=== PATIENT | male | born 1970 | race Caucasian/White ===

== ENCOUNTER 2019-06-22 08:05 | Inpatient (IN) | payer OTHER ==
[2019-06-22 09:09] VITALS: BMI 32.3
--- NOTE | 2019-06-22 09:37 | HP ---
CIWA Score Nausea/Vomitin Muscle Tremors: 4-Moderate,w/Arms Extend Anxiety: 4-Mod. Anxious/Guarded Agitation: 4-Moderately Restless Paroxysmal Sweats: 3 Orientation: 0-Oriented Tacttile Disturbances: 2-Mild Itch/Numbness/Burn Auditory Disturbances: 0-None Visual Disturbances: 0-None Headache: 3-Moderate CIWA-Ar Total Score: 23 - Admission Criteria OASAS Guidelines: Admission for Medically Managed Detox: Requires at least one of the followin. CIWA greater than 12 2. Seizures within the past 24 hours 3. Delirium tremens within the past 24 hours 4. Hallucinations within the past 24 hours 5. Acute intervention needed for co occurring medical disorder 6. Acute intervention needed for co occurring psychiatric disorder 7. Severe withdrawal that cannot be handled at a lower level of care (continued vomiting, continued diarrhea, abnormal vital signs) requiring intravenous medication and/or fluids 8. Admission ROS S - HPI Allergies/Adverse Reactions: Allergies Allergy/AdvReac Type Severity Reaction Status Date / Time codeine Allergy Rash Verified 06/22/19 08:56 History of Present Illness: pt here requesting detox from etoh reports 1 l vodka and 6 beers/day x 35 years, previous multiple detx @ [facility] , longest sobreity 5 years w/ AA from [id number] . Denies seizures , + blackouts , starts drinking alcohol in the mornings. current ROBSON 0.025 tobacco : 1 ppd PMHX : DM dx 3 years ago on Metformin , latest taken 4 days ago . PSHX : denies PSych : denies Exam Limitations: Clinical Condition, Intoxication - Ebola screening Have you traveled outside of the country in the last 21 days: No (N) Have you had contact with anyone from an Ebola affected area: No Do you have a fever: No - Review of Systems Constitutional: See HPI EENT: reports: No Symptoms Reported Respiratory: reports: No Symptoms reported Cardiac: reports: No Symptoms Reported GI: reports: See HPI : reports: No Symptoms Reported Musculoskeletal: reports: No Symptoms Reported Integumentary: reports: No Symptoms Reported Neuro: reports: See HPI, Headache Endocrine: reports: See HPI Psychiatric: reports: Orientated x3, Agitated, Anxious Patient History - Smoking Cessation Smoking history: Current every day smoker Have you smoked in the past 12 months: Yes Hx Chewing Tobacco Use: No Initiated information on smoking cessation: No - Substances abused Marijuana/Hashish Substance route: Smoking Frequency: 1-2 times per week Amount used: 1 joint Age of first use: 15 Date of last use: 06/21/19 Alcohol Substance route: Oral Frequency: Daily Amount used: 1 liter of vodka, 6 packs of beers Age of first use: 15 Date of last use: 06/21/19 Family Disease History - Family Disease History Family History: Denies Admission Physical Exam [facility] - Vital Signs Vital Signs: Vital Signs - 24 hr 06/22/19 08:46 Temperature 97.8 F Pulse Rate 101 H Respiratory 18 Rate Blood Pressure 150/91 - Physical General Appearance: Yes: Disheveled, Mild Distress, Intoxicated, Tremorous, Anxious HEENTM: Yes: EOMI, Hearing grossly Normal, Normocephalic, Normal Voice Respiratory: Yes: Lungs Clear, Normal Breath Sounds, No Respiratory Distress, No Accessory Muscle Use Neck: Yes: No masses,lesions,Nodules, Trachea in good position Cardiology: Yes: Regular Rhythm, Regular Rate, S1, S2, Tachycardia Abdominal: Yes: Non Tender, Soft, Protuberent Back: Yes: Normal Inspection Musculoskeletal: Yes: Gait Steady Extremities: Yes: Normal Range of Motion, Tremors Neurological: Yes: Fully Oriented, Alert, Motor Strength 5/5 Integumentary: Yes: Warm - Diagnostic (1) Alcohol dependence Current Visit: Yes Status: Acute Qualifiers: Substance use status: in withdrawal Inpatient Rehab Admission - Rehab Decision to Admit Inpatient rehab admission?: No
[2019-06-22] MEDS ORDERED: MAGNESIUM CITRATE 300 ML BOTTLE PO PRN (09:39)
[2019-06-22] MEDS ORDERED: MAG HYDROX/AL HYDROX/SIMETH 30 ML UNIT-DOSE CUP PO PRN (09:39)
[2019-06-22] MEDS ORDERED: ACETAMINOPHEN 325 MG TABLET (FP) PO PRN ×2 (09:39)
[2019-06-22] MEDS ORDERED: IBUPROFEN 400 MG TABLET (FP) PO PRN (09:39)
[2019-06-22] MEDS ORDERED: hydrOXYzine PAMOATE 25 MG CAPSULE (FP) PO PRN (09:39)
[2019-06-22] MEDS ORDERED: MAGNESIUM HYDROX 2400MG/30ML ORAL SUSPENSION 30 ML CUP PO PRN (09:39)
[2019-06-22] MEDS ORDERED: NICOTINE POLACRILEX 2 MG GUM BUC PRN (09:39)
[2019-06-22] MEDS ORDERED: MELATONIN 5 MG TABLETS PO PRN (09:39)
[2019-06-22] MEDS ORDERED: BISMUTH SUBSALICYLATE 262 MG/15 ML BTL PO PRN (09:39)
[2019-06-22] MEDS ORDERED: MENTHOL/PHENOL 1 EACH UD MM PRN (09:39)
[2019-06-22] MEDS ORDERED: chlordiazePOXIDE HCL 25 MG CAPSULE PO PRN (09:43)
[2019-06-22] MEDS: chlordiazePOXIDE HCL 25 MG CAPSULE PO SCH ×3 (11:08→22:53)
[2019-06-22] MEDS: PRENATAL VITAMINS W/ FOLIC ACID TABLET (FP) PO SCH (11:09)
--- NOTE | 2019-06-22 12:26 | PN ---
[facility] Progress Note Note: change admission lab date to today the phlebotomy is available
[2019-06-22 14:31] LABS: HEMATOCRIT 36.2 % (35.4-49); HEMOGLOBIN 12.6 GM/dL (11.7-16.9); MCH 28.4 pg (25.7-33.7); MCHC 34.7 g/dl (32.0-35.9); MEAN CELL VOLUME 81.7 fl (80-96); MEAN PLT VOLUME 7.8 fl (7.5-11.1); PLATELET COUNT 235 K/MM3 (134-434); RBC 4.43 M/mm3 (4.00-5.60); RDW 18.1 % (11.9-15.9); WHITE BLOOD COUNT 7.5 K/mm3 (4.0-10.0)
[2019-06-22 14:35] LABS: ALBUMIN 4.6 g/dl (3.4-5.0); BILIRUBIN,TOTAL 0.6 mg/dL (0.2-1); BLOOD UREA NITROGEN 12.3 mg/dL (7-18); POTASSIUM 3.9 mmol/L (3.5-5.1); TOT PROT 8.4 g/dl (6.4-8.2)
[2019-06-22] MEDS: INSULIN SLIDING SCALE (NOVOLOG) 1 VIAL SQ SCH (17:51)
[2019-06-22] MEDS ORDERED: THIAMINE HCL 100 MG TABLET (FP) PO SCH (22:00)
[2019-06-23 06:39] VITALS: BP 129/82; PULSE 63; TEMP 97.6
[2019-06-23] MEDS: chlordiazePOXIDE HCL 25 MG CAPSULE PO SCH ×2 (06:53→10:34)
[2019-06-23] MEDS: INSULIN SLIDING SCALE (NOVOLOG) 1 VIAL SQ SCH (06:53)
--- NOTE | 2019-06-23 08:07 | PN ---
S CIWA - CIWA Score Nausea/Vomitin Muscle Tremors: 2 Anxiety: 2 Agitation: 3 Paroxysmal Sweats: No Perspiration Orientation: 0-Oriented Tacttile Disturbances: 1-Very Mild Itch/Numbness Auditory Disturbances: 0-None Visual Disturbances: 0-None Headache: 1-Very Mild CIWA-Ar Total Score: 11 S Progress Note (SOAP) Subjective: alert,irritable,anxious,interrupted sleep,tremor Objective: 06/23/19 08:06 Vital Signs Temperature 97.6 F 06/23/19 06:38 Pulse Rate 63 06/23/19 06:38 Respiratory Rate 18 06/23/19 06:38 Blood Pressure 129/82 06/23/19 06:38 O2 Sat by Pulse Oximetry (%) 06/23/19 08:06 Laboratory Last Values WBC 7.5 K/mm3 (4.0-10.0) 06/22/19 12:20 RBC 4.43 M/mm3 (4.00-5.60) 06/22/19 12:20 Hgb 12.6 GM/dL (11.7-16.9) 06/22/19 12:20 Hct 36.2 % (35.4-49) 06/22/19 12:20 MCV 81.7 fl (80-96) 06/22/19 12:20 MCH 28.4 pg (25.7-33.7) 06/22/19 12:20 MCHC 34.7 g/dl (32.0-35.9) 06/22/19 12:20 RDW 18.1 % (11.9-15.9) H 06/22/19 12:20 Plt Count 235 K/MM3 (134-434) 06/22/19 12:20 MPV 7.8 fl (7.5-11.1) 06/22/19 12:20 Sodium 134 mmol/L (136-145) L 06/22/19 12:20 Potassium 3.9 mmol/L (3.5-5.1) 06/22/19 12:20 Chloride 100 mmol/L (98-107) 06/22/19 12:20 Carbon Dioxide 28 mmol/L (21-32) 06/22/19 12:20 Anion Gap 7 MMOL/L (8-16) L 06/22/19 12:20 BUN 12.3 mg/dL (7-18) 06/22/19 12:20 Creatinine 1.0 mg/dL (0.55-1.3) 06/22/19 12:20 Est GFR (CKD-EPI)AfAm 102.69 06/22/19 12:20 Est GFR (CKD-EPI)NonAf 88.61 06/22/19 12:20 POC Glucometer 276 UNITS (80-120) 06/22/19 16:35 Random Glucose 194 mg/dL (74-106) H 06/22/19 12:20 Calcium 10.0 mg/dL (8.5-10.1) 06/22/19 12:20 Total Bilirubin 0.6 mg/dL (0.2-1) 06/22/19 12:20 AST 46 U/L (15-37) H 06/22/19 12:20 ALT 45 U/L (13-61) 06/22/19 12:20 Alkaline Phosphatase 160 U/L (45-117) H 06/22/19 12:20 Total Protein 8.4 g/dl (6.4-8.2) H 06/22/19 12:20 Albumin 4.6 g/dl (3.4-5.0) 06/22/19 12:20 RPR Titer Nonreactive (NONREACTIVE) 06/22/19 12:20 Assessment: 06/23/19 08:07 withdrawal symptom Plan: continue detox
--- NOTE | 2019-06-23 08:10 | PN ---
[facility] Progress Note Note: patient do not want to continue treatment,stated he is not ready to continue treatment,all attempts to convince patient to stay with no avail, singed release ama,the high risk of relapsing explained,patient understood
--- NOTE | 2019-06-23 08:11 | DS ---
[facility] Detox Discharge Summary Admission Date: 06/22/19 Discharge Date: 06/23/19 - History Present History: Alcohol Dependence Additional Comments: patient signed release ama Pertinent Past History: type 2 dm - Physical Exam Results Vital Signs: Vital Signs Temperature 97.6 F 06/23/19 06:38 Pulse Rate 63 06/23/19 06:38 Respiratory Rate 18 06/23/19 06:38 Blood Pressure 129/82 06/23/19 06:38 O2 Sat by Pulse Oximetry (%) Pertinent Admission Physical Exam Findings: withdrawal sign and symptom Laboratory Last Values WBC 7.5 K/mm3 (4.0-10.0) 06/22/19 12:20 RBC 4.43 M/mm3 (4.00-5.60) 06/22/19 12:20 Hgb 12.6 GM/dL (11.7-16.9) 06/22/19 12:20 Hct 36.2 % (35.4-49) 06/22/19 12:20 MCV 81.7 fl (80-96) 06/22/19 12:20 MCH 28.4 pg (25.7-33.7) 06/22/19 12:20 MCHC 34.7 g/dl (32.0-35.9) 06/22/19 12:20 RDW 18.1 % (11.9-15.9) H 06/22/19 12:20 Plt Count 235 K/MM3 (134-434) 06/22/19 12:20 MPV 7.8 fl (7.5-11.1) 06/22/19 12:20 Sodium 134 mmol/L (136-145) L 06/22/19 12:20 Potassium 3.9 mmol/L (3.5-5.1) 06/22/19 12:20 Chloride 100 mmol/L (98-107) 06/22/19 12:20 Carbon Dioxide 28 mmol/L (21-32) 06/22/19 12:20 Anion Gap 7 MMOL/L (8-16) L 06/22/19 12:20 BUN 12.3 mg/dL (7-18) 06/22/19 12:20 Creatinine 1.0 mg/dL (0.55-1.3) 06/22/19 12:20 Est GFR (CKD-EPI)AfAm 102.69 06/22/19 12:20 Est GFR (CKD-EPI)NonAf 88.61 06/22/19 12:20 POC Glucometer 276 UNITS (80-120) 06/22/19 16:35 Random Glucose 194 mg/dL (74-106) H 06/22/19 12:20 Calcium 10.0 mg/dL (8.5-10.1) 06/22/19 12:20 Total Bilirubin 0.6 mg/dL (0.2-1) 06/22/19 12:20 AST 46 U/L (15-37) H 06/22/19 12:20 ALT 45 U/L (13-61) 06/22/19 12:20 Alkaline Phosphatase 160 U/L (45-117) H 06/22/19 12:20 Total Protein 8.4 g/dl (6.4-8.2) H 06/22/19 12:20 Albumin 4.6 g/dl (3.4-5.0) 06/22/19 12:20 RPR Titer Nonreactive (NONREACTIVE) 06/22/19 12:20 - Medication Discharge Medications: Ambulatory Orders Lisinopril 30 mg PO DAILY 06/22/19 Quetiapine Fumarate [Seroquel] 100 mg PO HS 06/22/19 Trazodone HCl 150 mg PO HS 06/22/19 - Diagnosis (1) DM2 (diabetes mellitus, type 2) Current Visit: Yes Status: Acute - AMA Did Patient Leave Against Medical Advice: Yes
--- NOTE | 2019-06-23 08:16 | PN ---
[facility] Progress Note Note: patient has medication at home
[2019-06-23] MEDS: PRENATAL VITAMINS W/ FOLIC ACID TABLET (FP) PO SCH (09:50)
[2019-06-23] MEDS ORDERED: metFORMIN HCL 500 MG TABLET (FP) PO SCH (16:30)
[2019-06-24] MEDS ORDERED: chlordiazePOXIDE HCL 25 MG CAPSULE PO SCH (05:00)
[2019-06-25] MEDS ORDERED: chlordiazePOXIDE HCL 10 MG CAPSULE PO PRN
[2019-06-25] MEDS ORDERED: chlordiazePOXIDE HCL 10 MG CAPSULE PO SCH (05:00)
[2019-06-26] MEDS ORDERED: chlordiazePOXIDE HCL 10 MG CAPSULE PO SCH (05:00)
[2019-06-27] MEDS ORDERED: chlordiazePOXIDE HCL 10 MG CAPSULE PO ONE (05:00)
== END 2019-06-23 08:54 | disposition left against medical advice (07) | DRG 894 ==
LOC: YASAS 08:05 → Y3N 09:55
PROVIDERS: ADMIT Surgery; ATTEND Surgery
PROC: HZ2ZZZZ Detoxification Services for Substance Abuse Treatment (ICD-10-PCS; principal; 2019-06-22)
DX: F10.230 Alcohol dependence with withdrawal, uncomplicated (principal); F12.20 Cannabis dependence, uncomplicated; F17.210 Nicotine dependence, cigarettes, uncomplicated; E11.9 Type 2 diabetes mellitus without complications; Z79.84 Long term (current) use of oral hypoglycemic drugs
CPT/HCPCS: 36415; 80053; 82962; 85027; 86593